=== PATIENT | female | born 2000 | race Caucasian/White ===

== ENCOUNTER 2024-07-22 20:46 | Emergency (ER) | payer OTHER, SELFPAY ==
[2024-07-22 21:55] VITALS: BP 137/64; PULSE 66; RESP 18; TEMP 36.8; O2SAT 100; BMI 40.5
[2024-07-22 22:39] LABS: MANUAL DIFF FLAG NO
[2024-07-22 22:40] LABS: Basophils Percent Auto 0.4 % (0-2); Eosinophils Absolute Auto 0.4 X10*3/uL (0.0-0.4); Eosinophils Percent Auto 3.7 % (0-4); Hematocrit 34.4 % (37.0-47.0); Hemoglobin 11.2 g/dl (12.0-16.0); Imm Gran Abs Auto 0.04 X10*3/uL (0.00-0.03); Imm Gran Pct Auto 0.4 % (0.0-0.4); Lymphocytes Absolute Auto 2.4 X10*3/uL (1.2-4.9); Lymphocytes Percent Auto 22.7 % (20-40); Mean Corpuscular HGB Conc 32.6 g/dl (31.0-35.0); Mean Corpuscular Hemoglobin 26.1 pg (27.0-33.0); Mean Corpuscular Volume 80.2 fL (80.0-98.0); Mean Platelet Volume 9.6 fL (9.4-12.3); Monocytes Absolute Auto 0.6 X10*3/uL (0.1-1.2); Monocytes Percent Auto 5.3 % (2-11); Neutrophils Absolute Auto 7.2 x10*3/uL (2.0-8.3); Neutrophils Percent Auto 67.5 % (45-73); Platelet Count 343 X10*3/uL (160-400); Red Blood Count 4.29 X10*6/uL (4.20-5.50); Red Cell Distribution Width 14.2 % (11.0-16.0); White Blood Count 10.6 X10*3/uL (4.8-10.8)
[2024-07-22 23:00] LABS: Alanine Aminotransferase 10 U/L (0-31); Albumin Level 3.9 g/dL (3.5-5.0); Alkaline Phosphatase 94 U/L (39-117); Anion Gap 10 (12-20); Aspartate Amino Transferase 11 U/L (5-31); Bilirubin Total 0.6 mg/dL (0.0-1.0); Blood Urea Nitrogen 8 mg/dL (9-16); Carbon Dioxide 28 mmol/L (22-29); Chloride 108 mmol/L (96-108); Creatinine Clr Calc Pharmacy 148.7; Estimated Glomerular Filt Rate > 60; Glucose Random 91 mg/dL (60-115); HCG Quantitative 19 mIU/mL; Potassium 3.8 mmol/L (3.3-5.1); Sodium 142 mmol/L (135-145); Total Protein 6.5 g/dL (6.5-8.0)
--- NOTE | 2024-07-22 23:39 | PC.NURSE ---
Pt is a 24 y/o female who presents today for evaluation of an ongoing headache with blurry vision in right eye, dizziness, photosensitivity, and nausea. Pt reports having a miscarriage at the end of May with continued on/off spotting. Today started with an unrelenting headahce that has been ongoing for over 24 hours and unaffected by OTC measures at home. Pt also reports having light and noise sensitivity. Moderate vaginal bleeding reported today, soaking a menstrual bad every 90-120 min, no clots. Last motrin and tylenol at 1800 hours with no relief or reduction in pain. Has not been eating, but able to drink fluid and hold them down. Positive test at home have continued since the end of May.
--- NOTE | 2024-07-23 00:30 | ED.HA ---
HPI - Headache General Chief Complaint: Vaginal Bleeding Stated Complaint: multiple complatins - miscarriage couple weeks ago Time Seen by Provider: 07/22/24 23:50 Source: patient Mode of arrival: ambulatory Limitations: no limitations History of Present Illness ED Provider: Insert HPI Narrative: 24-year-old female status post miscarriage at 6 weeks 06/09/2026 with a history of depression and anxiety who presents emergency department for evaluation of 2 chief complaints. Patient states that since her miscarriage she has been spotting on and off. She states that over the last 2 days she has had heavy vaginal bleeding where she was going through 1 pad every 2-3 hours. She states however this is now slowed down and she spotting again. She denies any associated abdominal pain or fever. She was also complaining of a headache which started yesterday at 20:00 hours. The pain came on gradually but became severe. She states that the pain is located on the right side of her head and radiates to the back of her head. The pain is a throbbing sensation associated with change in the vision of the right eye with scotoma, photophobia, phonophobia, nausea and vomiting. She denies any numbness or weakness. She states she gets headaches weekly but has never had a headache similar to today's headache. 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 She does smoke cigarettes. She denies alcohol use. She denies drug use. Social History Social History Advance Directives: No Advance Directives Information Provided: Yes Physical Exam Vital Signs: Vital Signs: Last Vital Signs Temp 98.3 F 07/22/24 21:55 Pulse 66 07/22/24 21:55 Resp 18 07/22/24 21:55 BP 137/64 07/22/24 21:55 Pulse Ox 100 07/22/24 21:55 O2 Del Method Room Air 07/22/24 21:55 BMI result Body Mass Index 40.5 Vital signs revealed an elevated blood pressure of 137/64 Exam: General: Awake, alert in no distress Head: Normocephalic, atraumatic, patient does have tenderness palpation on the right side of her scalp EENT: PERRL, Lids normal, sclera normal, conjunctiva normal, nose normal , ears normal, throat without erythema or exudates Neck: Supple, no adenopathy Lung: breath sounds symmetric, no wheezing, rales or rhonchi Chest: symmetric movement, nontender Heart: regular rate and rhythm, normal S1, S2 no murmurs or rubs Abdomen: soft, non-tender, nondistended, normal bowel sounds Back: no vertebral tenderness, no CVAT Extremities: no deformities, moves all extremities symmetrically Neuro: Awake, alert, oriented, normal speech, cranial nerves intact, moves all extremities symmetrically Psych: Pleasant, cooperative Medications Administered Discontinued Medications Generic Name Dose Route Start Last Admin Trade Name Freq PRN Reason Stop Dose Admin Diphenhydramine HCl 50 mg 07/23/24 00:30 07/23/24 00:52 Diphenhydramine Hcl 50 Mg/Ml Vial IVPUSH 07/23/24 00:31 50 mg ONCE STA Administration Sodium Chloride 1,000 mls @ 999 mls/hr 07/23/24 00:30 07/23/24 00:52 Ns IV 07/23/24 01:30 999 mls/hr .Q1H1M STA Administration Ketorolac Tromethamine 15 mg 07/23/24 00:30 07/23/24 00:52 Ketorolac Tromethamine 15 Mg/Ml Vial IVPUSH 07/23/24 00:31 15 mg ONCE STA Administration Metoclopramide HCl 10 mg 07/23/24 00:30 07/23/24 00:52 Metoclopramide Hcl 10 Mg/2 Ml Vial IVPUSH 07/23/24 00:31 10 mg ONCE STA Administration Medical Decision Making Medical Decision Making [facility] Narrative: 24-year-old female status post miscarriage at 6 weeks 06/09/2026 with a history of depression and anxiety who presents emergency department for evaluation vaginal bleeding and headache. Differential diagnosis: ?Includes but is not limited to: Vaginal bleeding: , retained products of conception Headache: Intracranial bleed, subarachnoid hemorrhage, mass effect, migraine headache, nonspecific headache Following evaluation was ordered: CBC, CMP, quantitative beta-hCG, urinalysis, IV insert Patient was initially treated with the following: Toradol 15 mg IV, Reglan 10 mg IV, Benadryl 50 mg IV, normal saline IV x1 L Course: :43 Patient's laboratory evaluation revealed a mild, normocytic anemia. CMP was normal. The patient has a detectable quantitative beta-hCG at 19 but I do not think this represents and I did discuss this with her. The patient's spotting and abnormal menses most likely related to her recent miscarriage and she was instructed to follow-up with [facility] for further evaluation. Patient's headache was consistent with a migraine syndrome. The patient's headache completely resolved after the above treatment. The patient was discharged home with the following migraine regimen every 6 hours as needed for headache: Reglan 10 mg, Benadryl 50 mg, Excedrin migraine 2 tablets. She was given printed and verbal instructions. Admission/Observation Consideration of admission/observation: Escalation of care including admission/observation considered Lab Data MDM Lab Attestation statement: I reviewed the patient's lab results. My interpretation patient's laboratory evaluation is as follows: CBC revealed a normocytic anemia with an H&H of 11.2 and 34.4. CMP was normal. Patient's quantitative beta-hCG was detectable at 19. 07/22/24 22:34 07/22/24 22:34 Labs: Lab Results 07/22/24 Range/Units 22:34 WBC 10.6 (4.8-10.8) X10*3/uL RBC 4.29 (4.20-5.50) X10*6/uL Hgb 11.2 L (12.0-16.0) g/dl Hct 34.4 L (37.0-47.0) % MCV 80.2 (80.0-98.0) fL MCH 26.1 L (27.0-33.0) pg MCHC 32.6 (31.0-35.0) g/dl RDW 14.2 (11.0-16.0) % Plt Count 343 (160-400) X10*3/uL MPV 9.6 (9.4-12.3) fL Immature Gran % (Auto) 0.4 (0.0-0.4) % Neut % (Auto) 67.5 (45-73) % Lymph % (Auto) 22.7 (20-40) % [place] % (Auto) 5.3 (2-11) % Eos % (Auto) 3.7 (0-4) % Baso % (Auto) 0.4 (0-2) % Lymph # (Auto) 2.4 (1.2-4.9) X10*3/uL [place] # (Auto) 0.6 (0.1-1.2) X10*3/uL Eos # (Auto) 0.4 (0.0-0.4) X10*3/uL Baso # (Auto) 0.0 (0.0-0.2) X10*3/uL Abs Immat Gran (auto) 0.04 H (0.00-0.03) X10*3/uL Absolute Neuts (auto) 7.2 (2.0-8.3) x10*3/uL Absolute Nucleated RBC 0.000 (0.0-0.012) X10*3/uL Nucleated RBC % (auto) 0.0 (0.0-0.2) /100WBC Sodium 142 (135-145) mmol/L Potassium 3.8 (3.3-5.1) mmol/L Chloride 108 (96-108) mmol/L Carbon Dioxide 28 (22-29) mmol/L Anion Gap 10 L (12-20) BUN 8 L (9-16) mg/dL Creatinine 0.66 (0.5-1.4) mg/dL Estim Creat Clear Calc 148.7 Estimated GFR > 60 Random Glucose 91 (60-115) mg/dL Calcium 9.0 (8.4-10.2) mg/dL Total Bilirubin 0.6 (0.0-1.0) mg/dL AST 11 (5-31) U/L ALT 10 (0-31) U/L Alkaline Phosphatase 94 (39-117) U/L Total Protein 6.5 (6.5-8.0) g/dL Albumin 3.9 (3.5-5.0) g/dL Beta HCG, Quant 19 mIU/mL Prescription Management I considered prescription management with: Pain Medication and Other (Antiemetic/migraine medication) Discharge Plan Discharge Clinical Impression: Abnormal vaginal bleeding, Migraine syndrome Patient Disposition: Home, Self-Care Instructions: Dysfunctional Uterine Bleeding (ED), Migraine Headache (ED) Additional Instructions: Your blood work revealed mild anemia. Your quantitative beta-hCG (blood test) was detectable at 19. I do not think that this means that your but rather you may have a low level of your blood or this may be residual from your miscarriage. I believe that your abnormal menstrual bleeding is most likely caused by your recent miscarriage. You should discuss these findings with your providers at [facility]. Your headache and other symptoms are consistent with a migraine. I want you to take the following 3 medications together every 6 hours as needed for headache, nausea or vomiting. Reglan (metoclopramide) in 10 mg, 1 pill Benadry (diphenhydramine) l 25 mg, 2 pills Excedrin migraine (acetaminophen, aspirin, caffeine), 2 pills. After you take these medications, lie down in a dark quiet room and try to fall asleep. ?These medications will make you sleepy, do not drive or work after taking these medications. Follow-up with your doctor in 2 days. Please return to the emergency department if your symptoms get worse or if you develop any symptoms that are concerning to you. Prescriptions: New metoclopramide HCl [Reglan] 10 mg tablet 10 mg PO Q6H PRN (Reason: nausea and vomiting) Qty: 14 0RF Print Language: [place]dean
[2024-07-23] MEDS: diphenhydrAMINE HCL 50 MG/ML VIAL IVPUSH (00:52)
[2024-07-23] MEDS: 0.9 % Sodium Chloride 1,000 ML 999 ML IV (00:52)
[2024-07-23] MEDS: Ketorolac Tromethamine 15 MG/ML VIAL IVPUSH (00:52)
[2024-07-23] MEDS: Metoclopramide HCl 10 MG/2 ML VIAL IVPUSH (00:52)
[2024-07-23 01:58] VITALS: BP 115/60; PULSE 60; RESP 17; TEMP 36.6; O2SAT 98
[2024-07-23 02:35] VITALS: BP 112/71; PULSE 87; RESP 16; TEMP 36.7; O2SAT 97
== END 2024-07-23 02:39 | disposition home or self-care (01) ==
PROVIDERS: Emergency Provider Emergency Medicine Emergency Medical Services
DX: N93.9 Abnormal uterine and vaginal bleeding, unspecified (principal); G43.909 Migraine, unspecified, not intractable, without status migrainosus; D64.9 Anemia, unspecified
CPT/HCPCS: 36415; 80053; 84702; 85025; 96361; 96374; 96375; 99284; J1200; J1885; J2765

== ENCOUNTER 2025-03-05 20:00 | Emergency (ER) | payer OTHER, SELFPAY ==
--- NOTE | ~2025-03-05 | CT_ITS ---
CLINICAL HISTORY: Headache, photophobia, nuasea CT head without contrast Comparison: None Findings: No intra-axial mass, midline shift, hydrocephalus, or acute hemorrhage. No significant atrophy-like change or white matter disease. There is no sinus or mastoid fluid. The orbits are within normal limits. No skull fracture. IMPRESSION: 1. No acute intracranial findings. This document has been electronically signed by: Alejandra Olmos MD on 03/05/2025 22:29:23
[2025-03-05 20:48] VITALS: BP 134/57; PULSE 81; RESP 16; TEMP 36.6; O2SAT 100; BMI 40.8
--- NOTE | 2025-03-05 20:54 | ED_ITS ---
HPI - General Adult General Chief complaint: Headache Stated complaint: Migraine/vision effected in rt eye Time Seen by Provider: 03/05/25 22:04 Source: patient Mode of arrival: ambulatory Limitations: no limitations History of Present Illness ED Provider: HPI narrative: Patient's history of migraine headache woke up today since 09:00 having headache on the right side with nausea vomiting photosensitivity history of similar headaches in the past no head injury no fever no chills no neck pain Related Data Previous Rx's ?Medication ?Instructions ?Recorded metoclopramide HCl 10 mg tablet 10 mg PO Q6H PRN nausea and 07/23/24 (Reglan) vomiting #14 tabs [id number] 1 tab PO Q6H PRN haeadace #20 tabs 03/05/25 50 mg-325 mg-40 mg tablet ondansetron 4 mg disintegrating 4 mg PO Q6-8H PRN nausea and 03/05/25 tablet vomiting #7 tabs sumatriptan succinate 50 mg tablet 50 mg PO Q2H PRN migraine headache 03/05/25 (Imitrex) #10 tabs Allergies Allergy/AdvReac Type Severity Reaction Status Date / Time No Known Allergies Allergy Verified 03/05/25 20:51 Review of Systems 2 Review of Systems: Yes all other systems are reviewed and are negative PMFSH Social History Social History Smoked in Last 30 Days: No Use of substances other than those prescribed or required for medical reasons: No Advance Directives: No Advance Directives Information Provided: No Do you have a plan to hurt others: No Plan Patient : No Physical Exam ED Vital Signs: Vital Signs - 24 hr 03/05/25 20:48 03/05/25 23:08 03/05/25 23:23 Temperature 98 F 97.6 F 97.6 F Pulse Rate 81 65 65 Respiratory Rate 16 15 15 Blood Pressure 134/57 L 129/47 L 129/47 L Pulse Oximetry 100 96 96 Oxygen Delivery Method Room Air Room Air Room Air BMI result Body Mass Index 40.8 Appearance: Alert. Oriented X3. No acute distress. Eyes: PERRLA, No Nystagmus ENT: Pharynx normal. Oral Mucosa moist temporal artery nontender Neck: Normal inspection. Neck supple. CVS: Normal heart rate and rhythm. Pulses normal. Respiratory: No respiratory distress. Equal air entry bilateral, no wheezing/rales/rhonchi Abdomen: Soft and nontender. Bowel sounds are present, no mass palpable, no CVA tenderness Skin: Skin warm and dry. Normal skin color. Normal skin turgor. Extremities: No lower extremity edema. No calf tenderness Neuro: Oriented X 3. No motor deficit. No sensory deficit.No cerebellar signs , cranial nerves II-XII intact Course Course Course Narrative: RME; 25 yold femevi presents to the ED for right sided headache, photophobia, and nausea. Patient had one episode of migraine in the past. NIH score 0. no neuro defcitis. labs and HEad CT scan ordered. Medications Administered Discontinued Medications Generic Name Dose Route Start Last Admin Trade Name Freq PRN Reason Stop Dose Admin Acetaminophen/Butalbital/Caffeine 1 tab 03/05/25 22:25 03/05/25 22:33 Butalb/Acetamin/Caff 50/325/40 Tablet PO 03/05/25 22:26 1 tab ONCE ONE Administration Ondansetron HCl 4 mg 03/05/25 22:25 03/05/25 22:33 Ondansetron Odt 4 Mg Tab.Rapdis TRANSLINGU 03/05/25 22:26 4 mg ONCE ONE Administration Sumatriptan Succinate 6 mg 03/05/25 22:25 03/05/25 22:33 Sumatriptan Succinate 6 Mg/0.5 Ml Vial SUBCUT 03/05/25 22:26 6 mg ONCE ONE Administration Medical Decision Making Medical Decision Making [facility] Narrative: Patient with migraine headache similar to that in the past responded to Imitrex feeling much better will discharge patient home patient has a CT scan done prior to my evaluation which was negative Differential Diagnosis Differential Diagnoses: The differential diagnosis associated with the presentation includes Lab Data [facility] Lab Attestation statement: I reviewed the patient's lab results. 03/05/25 21:07 03/05/25 21:07 Labs: Lab Results 03/05/25 Range/Units 21:07 WBC 10.4 (4.8-10.8) X10*3/uL RBC 4.61 (4.20-5.50) X10*6/uL Hgb 12.1 (12.0-16.0) g/dl Hct 36.3 L (37.0-47.0) % MCV 78.7 L (80.0-98.0) fL MCH 26.2 L (27.0-33.0) pg MCHC 33.3 (31.0-35.0) g/dl RDW 14.9 (11.0-16.0) % Plt Count 355 (160-400) X10*3/uL MPV 8.9 L (9.4-12.3) fL Immature Gran % (Auto) 0.3 (0.0-0.4) % Neut % (Auto) 59.4 (45-73) % Lymph % (Auto) 30.8 (20-40) % [place] % (Auto) 6.5 (2-11) % Eos % (Auto) 2.4 (0-4) % Baso % (Auto) 0.6 (0-2) % Lymph # (Auto) 3.2 (1.2-4.9) X10*3/uL [place] # (Auto) 0.7 (0.1-1.2) X10*3/uL Eos # (Auto) 0.3 (0.0-0.4) X10*3/uL Baso # (Auto) 0.1 (0.0-0.2) X10*3/uL Abs Immat Gran (auto) 0.03 (0.00-0.03) X10*3/uL Absolute Neuts (auto) 6.2 (2.0-8.3) x10*3/uL Absolute Nucleated RBC 0.000 (0.0-0.012) X10*3/uL Nucleated RBC % (auto) 0.0 (0.0-0.2) /100WBC Sodium 143 (135-145) mmol/L Potassium 3.9 (3.3-5.1) mmol/L Chloride 107 (96-108) mmol/L Carbon Dioxide 26 (22-29) mmol/L Anion Gap 14 (12-20) BUN 10 (9-16) mg/dL Creatinine 0.66 (0.5-1.4) mg/dL Estim Creat Clear Calc 148.1 Estimated GFR > 60 Random Glucose 88 (60-115) mg/dL Calcium 9.5 (8.4-10.2) mg/dL Total Bilirubin 0.4 (0.0-1.0) mg/dL AST 28 (5-31) U/L ALT 27 (0-31) U/L Alkaline Phosphatase 102 (39-117) U/L Total Protein 7.1 (6.5-8.0) g/dL Albumin 4.2 (3.5-5.0) g/dL Beta HCG, Quant < 2 mIU/mL Independent Interpretation I performed an independent interpretation of an: CT Scan Radiology Impression Discussion of test interpretation with radiology: I have reviewed the radiologist's reading. Radiologist Impression: NAD Discharge Plan Discharge Clinical Impression: Migraine Patient Disposition: Home, Self-Care Instructions: Migraine Headache (ED) Additional Instructions: Rest at home Take Imitrex as prescribed 1 tablet at onset of headache may repeat in 2 hours if headache persists not more than 2 tablets in 24 hours Fioricet 1 tablet every 6 hours as needed for headache Zofran for nausea/vomiting Follow up with your PCP if not better Prescriptions: New sumatriptan succinate [Imitrex] 50 mg tablet 50 mg PO Q2H PRN (Reason: migraine headache) Qty: 10 0RF Rx Instructions: do not exceed 2 doses per 24 hrs [id number]-[id number] 50-325-40 mg tablet 1 tab PO Q6H PRN (Reason: haeadace) Qty: 20 0RF ondansetron 4 mg tablet,disintegrating 4 mg PO Q6-8H PRN (Reason: nausea and vomiting) Qty: 7 0RF No Action metoclopramide HCl [Reglan] 10 mg tablet 10 mg PO Q6H PRN (Reason: nausea and vomiting) Qty: 14 0RF Interventions: ED Discharge Assessment Last Done: 03/05/25 23:23 Discharge Date/Time: 03/05/25 23:30 Print Language: Indonesian
[2025-03-05 21:10] LABS: MANUAL DIFF FLAG NO
[2025-03-05 21:11] LABS: Basophils Absolute Auto 0.1 X10*3/uL (0.0-0.2); Basophils Percent Auto 0.6 % (0-2); Eosinophils Absolute Auto 0.3 X10*3/uL (0.0-0.4); Eosinophils Percent Auto 2.4 % (0-4); Hematocrit 36.3 % (37.0-47.0); Hemoglobin 12.1 g/dl (12.0-16.0); Imm Gran Abs Auto 0.03 X10*3/uL (0.00-0.03); Imm Gran Pct Auto 0.3 % (0.0-0.4); Lymphocytes Absolute Auto 3.2 X10*3/uL (1.2-4.9); Lymphocytes Percent Auto 30.8 % (20-40); Mean Corpuscular HGB Conc 33.3 g/dl (31.0-35.0); Mean Corpuscular Hemoglobin 26.2 pg (27.0-33.0); Mean Corpuscular Volume 78.7 fL (80.0-98.0); Mean Platelet Volume 8.9 fL (9.4-12.3); Monocytes Absolute Auto 0.7 X10*3/uL (0.1-1.2); Monocytes Percent Auto 6.5 % (2-11); Neutrophils Absolute Auto 6.2 x10*3/uL (2.0-8.3); Neutrophils Percent Auto 59.4 % (45-73); Platelet Count 355 X10*3/uL (160-400); Red Blood Count 4.61 X10*6/uL (4.20-5.50); Red Cell Distribution Width 14.9 % (11.0-16.0); White Blood Count 10.4 X10*3/uL (4.8-10.8)
[2025-03-05 21:33] LABS: Alanine Aminotransferase 27 U/L (0-31); Albumin Level 4.2 g/dL (3.5-5.0); Alkaline Phosphatase 102 U/L (39-117); Anion Gap 14 (12-20); Aspartate Amino Transferase 28 U/L (5-31); Bilirubin Total 0.4 mg/dL (0.0-1.0); Blood Urea Nitrogen 10 mg/dL (9-16); Calcium 9.5 mg/dL (8.4-10.2); Carbon Dioxide 26 mmol/L (22-29); Chloride 107 mmol/L (96-108); Creatinine Clr Calc Pharmacy 148.1; Estimated Glomerular Filt Rate > 60; Glucose Random 88 mg/dL (60-115); Potassium 3.9 mmol/L (3.3-5.1); Sodium 143 mmol/L (135-145); Total Protein 7.1 g/dL (6.5-8.0)
[2025-03-05 21:34] LABS: HCG Quantitative < 2 mIU/mL
[2025-03-05] MEDS: Ondansetron ODT 4 MG TAB.RAPDIS TRANSLINGU (22:33)
[2025-03-05] MEDS: Butalb/Acetamin/Caff 50/325/40 TABLET 1 TAB PO (22:33)
[2025-03-05] MEDS: SUMAtriptan succinate 6 MG/0.5 ML VIAL SUBCUT (22:33)
[2025-03-05 23:08] VITALS: BP 129/47; PULSE 65; RESP 15; TEMP 36.4; O2SAT 96
[2025-03-05 23:23] VITALS: BP 129/47; PULSE 65; RESP 15; TEMP 36.4; O2SAT 96
== END 2025-03-05 23:30 | disposition home or self-care (01) ==
PROVIDERS: Physician Assistant; Emergency Provider Internal Medicine
DX: G43.909 Migraine, unspecified, not intractable, without status migrainosus (principal)
CPT/HCPCS: 36415; 70450; 80053; 84702; 85025; 96372; 99284; J3030

== ENCOUNTER → 2025-03-05 20:52 | Outpatient (BNV) | payer OTHER, SELFPAY | PROVIDERS: Emergency Provider Internal Medicine; Visit Provider Student in an Organized Health Care Education/Training Program | DX: R51.9 Headache, unspecified (principal); R11.0 Nausea; H53.149 Visual discomfort, unspecified | CPT/HCPCS: 70450 ==